=== PATIENT | female | born 1985 | race Two or more races ===

== ENCOUNTER → 2021-11-08 07:33 | Outpatient (CLI) | payer OTHER | END | disposition home or self-care (01) | LOC: LAB 07:33 | PROVIDERS: ATTEND Obstetrics & Gynecology Obstetrics | DX: Z20.828 Contact with and (suspected) exposure to other viral communicable diseases (principal) ==

== ENCOUNTER 2021-11-10 11:49 | Day surgery (SDC) | payer OTHER | END 2021-11-10 20:55 | disposition home or self-care (01) | LOC: CIR.AMB 11:49 | PROVIDERS: ATTEND Obstetrics & Gynecology Obstetrics | DX: N85.00 Endometrial hyperplasia, unspecified (principal); Z20.822 Contact with and (suspected) exposure to COVID-19 ==

== ENCOUNTER 2022-04-18 08:32 | Inpatient (IN) | payer OTHER ==
[~2022-04-18] VITALS: Ht 165.1 cm; Wt 87.5 kg
== END 2022-04-26 13:39 | disposition home or self-care (01) | DRG 743 ==
LOC: SURG 04-23 07:00 → OB/GYN 04-23 11:58 → O/R 04-23 11:58 → OB/GYN 04-23 21:31
PROVIDERS: ADMIT Obstetrics & Gynecology Obstetrics; ATTEND Obstetrics & Gynecology Obstetrics
PROC: 0UT90ZZ Resection of Uterus, Open Approach (ICD-10-PCS; principal; 2022-04-23 07:00)
DX: D25.1 Intramural leiomyoma of uterus (principal); N72 Inflammatory disease of cervix uteri; Z20.822 Contact with and (suspected) exposure to COVID-19

== ENCOUNTER 2022-05-01 17:19 | Inpatient (IN) | payer OTHER ==
[~2022-05-01] VITALS: Ht 165.1 cm; Wt 87.5 kg
--- NOTE | 2022-05-01 18:11 | NUR ---
SE RECIBE PTE ALERTA Y ORIENTADA X3. PTE VERBALIZA ESTAR RECIEN OPERADA, HYSTERECTOMY, PO DR [facility], LO CUAL LA OLIVA A ER. PTE REFIERE NO PODER ORINAR SIN DOLOR EXTREMO EN [place], Y CUANDO ORINA SALE CON IRENE. PTE VERBALIZA NOP GAYATRI EVACUADO DESDE HACE 3 COTTRELL. PTE REFIERE GAYATRI [facility] LO CUAL LE DIERON TORADOL Y CIPRO Y SE REHUSARON SEGUIR TRATANDOLA POR ESTAR RECIEN OPERADA. SE CORETTA SV Y SE UBICA EN DESMOND.
--- NOTE | 2022-05-01 19:13 | NUR ---
EVALUA PTE. SE EDUCA SOBRE [place] MEDICO EL CUAL REFIERE COMPRENDER. SE COLECTAN MUESTRAS DE LABORATORIO BAJO MEDIDAS ASEPTICAS. SE ADMINISTRA MEDICAMENTO [facility].
--- NOTE | 2022-05-02 10:19 | NUR ---
PTE ALERTA,ESTABLE Y ORIENTADA.SE EDUCA SOBRE EL TRATAMIENTO QUE RECIBIRA EN EL HOSPITAL Y ESTA REFIERE ENTENDER
--- NOTE | 2022-05-02 15:18 | NUR ---
SE RECIBE PTE DEL TURNO ANTERIOR, ALERTA Y ORIENTADA EN LYNETTE EDISON ESFERAS, UBICADA EN DESMOND, NIVEL MAS BAJO, GIFFORD DE IDENTIFICACION Y BARANDAS ELEVADAS POR PRECAUCION. SE OBSERVA CON BUEN PATRON RESPIRATORIO Y PIEL TIBIA AL TACTO. IV PATENTE Y ULI DE EDEMA O ERITEMA CON R/L @175ML/HR. PENIDENTE CONSULTA CON DR CARLOS, QUIEN SE ENCUENTRA EVALUANDO A LA MISMA. SE MANTIENE BAJO OBSERVACION.
== END 2022-05-15 16:14 | disposition home or self-care (01) | DRG 863 ==
LOC: ER 17:19 → OB/GYN 05-02 16:42
PROVIDERS: ADMIT Obstetrics & Gynecology Obstetrics; ATTEND Obstetrics & Gynecology Obstetrics
PROC: BW21Y0Z Computerized Tomography (CT Scan) of Abdomen and Pelvis using Other Contrast, Unenhanced and Enhanced (ICD-10-PCS; principal; 2022-05-02)
PROC: BW21Y0Z Computerized Tomography (CT Scan) of Abdomen and Pelvis using Other Contrast, Unenhanced and Enhanced (ICD-10-PCS; 2022-05-07)
PROC: BW21YZZ Computerized Tomography (CT Scan) of Abdomen and Pelvis using Other Contrast (ICD-10-PCS; 2022-05-14)
DX: T81.49XA Infection following a procedure, other surgical site, initial encounter (principal); K68.11 Postprocedural retroperitoneal abscess; Z20.828 Contact with and (suspected) exposure to other viral communicable diseases

== ENCOUNTER 2023-03-07 09:38 | Emergency (ER) | payer OTHER ==
[~2023-03-07] VITALS: Ht 165.1 cm; Wt 81.6 kg
== END 2023-03-07 15:35 | disposition home or self-care (01) ==
LOC: ER 09:38
DX: R10.2 Pelvic and perineal pain (principal)

== ENCOUNTER 2023-03-13 15:13 | Inpatient (IN) | payer OTHER ==
[~2023-03-13] VITALS: Ht 165.1 cm; Wt 81.6 kg
--- NOTE | 2023-03-13 16:54 | NUR ---
PTE REFIERE Q DESDE EL 3 JUILIO TIENE UN HAILEY DOLOR PELVICO PTE DEL DR CANTU EL CUAL LA ENVIA A TAN DE EMRGENCIA.
--- NOTE | 2023-03-13 18:58 | NUR ---
EVALUA PTE. SE EDUCA SOBRE [place] MEDICO, REFIERE COMPRENDER. SE REALIZAN MUESTRAS DE LABORATORIO BAJO MEDIDAS ASEPTICAS. SE COORDINA SONOGRAMA. PTE MANEJADA POR . PENDIENTE RE-EVALUACION MEDICA.
[2023-03-13 19:11] LABS: HEMATOCRIT 37.6 % (36.0-45.00); MEAN CELL VOLUME 86.1 fL (80.00-100.00); MEAN CORPUSCULAR HEMOGLOBIN 29.7 pg (27.00-32.0); MEAN CORPUSCULAR HGB CONC 34.5 g/dl (32.0-36.0); PLATELET COUNT 320 K/uL (150-450); RED BLOOD COUNT 4.37 M/uL (4.00-6.00)
[2023-03-13 19:49] LABS: CALCIUM 9.9 mg/dL (8.5-10.1); CREATININE SERUM 0.58 mg/dL (0.55-1.02); GFR 116.34; POTASSIUM 3.84 mEq/L (3.5-5.1)
[2023-03-13 19:51] LABS: INR 0.99; PARTIAL THROMBOPLASTIN TIME 27.9 SECONDS (22.0-34.0); PROTHROMBIN TIME 10.4 SECONDS (9.0-11.5)
--- NOTE | 2023-03-13 23:05 | NUR ---
SE RECIBE PACIENTE EL TURNO ANTERIOR LA MISMA SE ENCUENTRA ALERTA Y ORIENTADA X3, SE LE ORIENTA A PACIENTE SOBRE CONTINUIDAD DE TRATAMIENTO Y VERBALIZA ENTENDER. SE OBSERVA PACIENTE PREVIAMENTE CANALIZADA RECIBIENDO 0.9% NSS BAJANDO A 100ML/HR. PACIENTE EN ESPERA DE CONSULTA CON DR RONDON.
--- NOTE | 2023-03-14 07:05 | NUR ---
SE OBSERBA EN DESMOND CON BARANDAS ELEVADAS PTE AL MOMENTO SE OBSERBA RECIBIENDO INFUCION DE 0.9% NSS A 100 MLS/PTE PEND A CONSULTA CON DR MCCALLUM
[2023-03-16 08:48] LABS: HEMATOCRIT 32.7 % (36.0-45.00); HEMOGLOBIN 11.2 g/dL (12.0-15.00); MEAN CORPUSCULAR HEMOGLOBIN 29.8 pg (27.00-32.0); MEAN CORPUSCULAR HGB CONC 34.3 g/dl (32.0-36.0); PLATELET COUNT 274 K/uL (150-450); RED BLOOD COUNT 3.76 M/uL (4.00-6.00)
== END 2023-03-19 16:26 | disposition home or self-care (01) | DRG 743 ==
LOC: ER 15:13 → OB/GYN 03-14 11:33 → SEC-K 03-14 11:33 → OB/GYN 03-14 15:07
PROVIDERS: General Practice; ADMIT Obstetrics & Gynecology Obstetrics; ATTEND Obstetrics & Gynecology Obstetrics
PROC: BU4CZZZ Ultrasonography of Uterus and Ovaries (ICD-10-PCS; 2023-03-13)
PROC: 0UB00ZZ Excision of Right Ovary, Open Approach (ICD-10-PCS; principal; 2023-03-14)
PROC: BW21YZZ Computerized Tomography (CT Scan) of Abdomen and Pelvis using Other Contrast (ICD-10-PCS; 2023-03-18)
DX: N83.291 Other ovarian cyst, right side (principal); Z20.822 Contact with and (suspected) exposure to COVID-19